=== PATIENT | male | born 1970 | race Caucasian/White ===

== ENCOUNTER 2017-06-17 12:45 | Inpatient (IN) ==
[2017-06-17 13:30] LABS: Basophils # 0.1 K/mcL (0.0-0.2); Basophils % 0.5 %; Eosinophils # 0.2 K/mcL (0.0-0.6); Hematocrit 48.5 % (37.5-50.1); Hemoglobin 16.1 g/dL (12.9-16.9); Immature Granulocytes % 0.6 % (0-4); Lymphocytes % 8.9 %; Mean Corpuscular HGB Conc 33.2 g/dL (31.6-35.5); Mean Corpuscular Hemoglobin 29.3 pg (28.0-33.3); Mean Corpuscular Volume 88.3 fL (83.0-100.0); Mean Platelet Volume 9.1 fL (9.4-12.4); Monocytes # 0.7 K/mcL (0.0-1.3); Monocytes % 6.8 %; Neutrophils # 8.9 K/mcL (1.6-8.9); Platelet Count 280 K/mcL (140-400); Red Blood Count 5.49 M/mcL (4.19-5.50); Red Cell Distribution Width 12.3 % (11.5-14.5); Segmented Neutrophils % 81.2 %
[2017-06-17 13:40] LABS: Alanine Aminotransferase 311 Units/L (0-55); Albumin 3.6 g/dL (3.5-5.0); Alkaline Phosphatase 227 Units/L (38-126); Amylase 29 Units/L (25-125); Aspartate Amino Transferase 199 Units/L (5-34); BUN/Creatinine Ratio 10 (6-26); Bilirubin,Direct 3.4 mg/dL (0.0-0.5); Bilirubin,Indirect 1.9 mg/dL (0.0-1.2); Blood Urea Nitrogen 11 mg/dL (8-26); Calcium 9.6 mg/dL (8.6-10.8); Carbon Dioxide 27 mEq/L (19-29); Chloride 103 mEq/L (98-109); Globulin 3.7 g/dL (2.4-3.5); Glucose 105 mg/dL (70-99); Lipase 11 Units/L (8-78); Osmolality,Calculated 284 (280-300); Sodium 137 mEq/L (136-145); Total Protein 7.3 g/dL (6.0-8.3); eGFR For African Americans > 60 (> 60); eGFR For Non-African Americans > 60 (> 60)
[2017-06-17 13:41] LABS: Bilirubin,Total 5.3 mg/dL (0.2-1.2)
--- NOTE | 2017-06-17 13:55 | Emergency Department Note ---
Disposition Clinical Impression: Choledocholithiasis Disposition: Admitted As Inpatient Condition: Undetermined Referrals: NONE,PCP [Primary Care Provider] - Forms: ED Satisfaction Letter, Work/School Release Time of Disposition: 14:31 Abdominal Pain HPI - General Chief Complaint: ED Abdominal Pain Stated Complaint: gallbladder issues Time Seen by Provider: 06/17/17 13:37 Source: patient, family Mode of arrival: ambulatory Limitations: no limitations Nursing Notes Reviewed: Yes Vital Signs Reviewed: Yes - History of Present Illness HPI Narrative: 46-year-old male with extensive history of biliary disease arrives to [facility] emergency department with multiple complaints of right upper quadrant pain that occurred over the past 2 days. The patient was seen at outside hospital, [facility], where he was worked up receiving a CT scan and lab work. CT scan and labs demonstrated what there was a concern for choledocholithiasis and he attempted to transport the patient to hospital in [place] for possible ERCP. The patient refuses that time he decided to come to [facility]. The patient arrives to the emergency department complaining of right upper quadrant pain. Upon examination the patient has no tenderness at this time but does state he is a little sore prior to palpation. The patient states he is no longer having any pain with the exception of a headache. Patient is resting comfortably sitting on the edge of the bed. The patient denies any other complaints at this time. Pt Subjective Complaint: abdominal pain Onset (ago): hour(s) (12) Consistency: now resolved Location: RUQ Pain Severity: none Pain Scale: 0 Radiation: none Migration to: no migration Improves with: nothing Worsens with: nothing Context: history of similar episodes Associated symptoms: Reports: nausea Treatments prior to arrival: none - Related Data Home Medications Medication Instructions Recorded Confirmed No Known Home Drugs 06/17/17 06/17/17 Allergies Allergy/AdvReac Type Severity Reaction Status Date / Time No Known Allergies Allergy Verified 06/17/17 12:48 All systems ED: reviewed and negative except as stated. Constitutional: Denies: fever, chills, weakness, weight change Cardiovascular: Denies: chest pain, palpitations, dyspnea on exertion, edema, syncope Respiratory: Denies: cough, dyspnea, wheezes, hemoptysis, stridor Gastrointestinal: Reports: abdominal pain (Resolved), nausea. Denies: vomiting , diarrhea, constipation, hematemesis, melena, hematochezia Musculoskeletal: Reports: as per HPI Integumentary: Denies: rash, abrasion, lesions Neurological: Denies: headache, weakness, numbness, paresthesias, confusion, abnormal gait, vertigo Abdominal Pain PMH - Past Medical History Medical history: Reports: no medical history Male Surgical History: Reports: other - Social History Smoking status: Never smoker Alcohol use: Reports: occasionally Drug use: Reports: none Physical Exam - General Limitations: no limitations General appearance: alert, in no apparent distress - Head Head exam: atraumatic, normocephalic, normal inspection - Neck Neck exam: Present: normal inspection, full ROM, trachea midline - Chest Chest inspection: Present: normal inspection, symmetric chest wall rise - Respiratory Respiratory exam: Present: normal lung sounds bilaterally - Cardiovascular Cardiovascular exam: Present: regular rate, normal rhythm, normal heart sounds - Abdominal Exam Abdominal exam: Present: soft, Non-Tender. Absent: tenderness, distention, guarding, rebound, rigidity, pulsatile mass, hernia - Extremities Exam Extremities exam: Present: normal inspection, full ROM. Absent: tenderness, pedal edema - Neurological Exam Neurological exam: Present: alert, oriented X3 - Skin Skin exam: Present: warm, dry, intact, normal color Course Vital Signs Temperature 97.1 F L 06/17/17 12:48 Pulse Rate 81 06/17/17 12:48 Respiratory Rate 16 06/17/17 12:48 Blood Pressure 145/91 06/17/17 12:48 O2 Sat by Pulse Oximetry 96 06/17/17 12:48 Temperature 97.1 F L 06/17/17 12:48 Pulse Rate 81 06/17/17 12:48 Respiratory Rate 16 06/17/17 12:48 Blood Pressure 145/91 06/17/17 12:48 O2 Sat by Pulse Oximetry 96 06/17/17 12:48 Oxygen Delivery Oxygen Delivery Room Air Abdominal Pain - MDM Narrative Medical decision making narrative: Patient is right upper quadrant pain is now resolved this time. The patient had a CT scan and labwork last demonstrated possible choledocholithiasis. The patient labs here demonstrated an elevated total bilirubin. After observing the patient's labs, Dr. Lee in gastroenterology was called and consulted. He recommended the patient receive an ERCP today and that the patient be admitted to the hospitalist service. The patient was made nothing by mouth at that time. The patient will be admitted to the hospitalist service. He should see urine is nitrite positive and positive for bilirubin. No bacteria were seen on urinalysis. This appears to be consistent with findings associated with an elevated bilirubin. We will not treat the patient for a urinary tract infection at this time given he is asymptomatic. Patient made aware and agrees to plan. The patient continues to not want any pain medication for his abdominal pain but is requesting something for his headache. Accepted by Dr. Mari. - Lab Data Lab results reviewed: Yes I reviewed the patient's lab results. Result diagrams: 06/17/17 13:14 06/17/17 13:14 Lab Results 06/17/17 06/17/17 06/17/17 Range/Units 13:14 13:14 13:55 WBC 11.0 (4.3-11.1) K/mcL RBC 5.49 (4.19-5.50) M/mcL Hgb 16.1 (12.9-16.9) g/dL Hct 48.5 (37.5-50.1) % MCV 88.3 (83.0-100.0) fL MCH 29.3 (28.0-33.3) pg MCHC 33.2 (31.6-35.5) g/dL RDW 12.3 (11.5-14.5) % Plt Count 280 (140-400) K/mcL MPV 9.1 L (9.4-12.4) fL Immature Gran % 0.6 (0-4) % Seg Neutrophils % 81.2 % Lymphocytes % 8.9 % Monocytes % 6.8 % Eosinophils % 2.0 % Basophils % 0.5 % Neutrophils # 8.9 (1.6-8.9) K/mcL Lymphocytes # 1.0 (0.6-4.6) K/mcL Monocytes # 0.7 (0.0-1.3) K/mcL Eosinophils # 0.2 (0.0-0.6) K/mcL Basophils # 0.1 (0.0-0.2) K/mcL Sodium 137 (136-145) mEq/L Potassium 4.0 (3.5-4.5) mEq/L Chloride 103 (98-109) mEq/L Carbon Dioxide 27 (19-29) mEq/L BUN 11 (8-26) mg/dL Creatinine 1.05 (0.72-1.25) mg/dL Est GFR ( Amer) > 60 (> 60) Est GFR (Non-Af Amer) > 60 (> 60) BUN/Creatinine Ratio 10 (6-26) Glucose 105 H (70-99) mg/dL Calculated Osmolality 284 (280-300) Calcium 9.6 (8.6-10.8) mg/dL Total Bilirubin 5.3 H (0.2-1.2) mg/dL Direct Bilirubin 3.4 H (0.0-0.5) mg/dL Indirect Bilirubin 1.9 H (0.0-1.2) mg/dL AST 199 H (5-34) Units/L ALT 311 H (0-55) Units/L Alkaline Phosphatase 227 H (38-126) Units/L Serum Total Protein 7.3 (6.0-8.3) g/dL Albumin 3.6 (3.5-5.0) g/dL Globulin 3.7 H (2.4-3.5) g/dL Albumin/Globulin Ratio 1.0 L (1.1-2.2) Amylase 29 (25-125) Units/L Lipase 11 (8-78) Units/L Urine Color [place] A (Yellow) Urine Clarity Clear (Clear) Urine pH 6.0 (5.0-8.0) pH Units Ur Specific [place] 1.030 H (1.010-1.025) Urine Protein 30 H (Neg-Trace) mg/dL Urine Glucose (UA) Normal (Normal) mg/dL Urine Ketones Trace H (Negative) mg/dL Urine Blood Negative (Negative) Urine Nitrite Positive A (Negative) Urine Bilirubin Large H (Negative) Urine Urobilinogen 4.0 H (Normal) mg/dL Ur Leukocyte Esterase Small H (Negative) Urine Microscopic RBC 0-3 (0-3) per hpf Urine Microscopic WBC 0-3 (0-3) per hpf Ur Squamous Epith Cells Moderate H (None-Few) per lpf Urine Bacteria None Seen (None-Few) per hpf Hyaline Casts None Seen (None-Few) per lpf Ur Culture Indicated? YES A (NO) Attestation Statement - Attestation Attestation: I examined this patient and my medical decision-making was reviewed with the Resident Physician. I agree with the documented findings, disposition and treatment plan as described except to the extent set forth below. [id number] time provided Patient seen in conjunction with Dr. Rodriguez. Labs reviewed by me indicating hyperbilirubinemia. Arrangements made for admission for possible ERCP
[2017-06-17] MEDS ORDERED: 0.9 % Sodium Chloride 1,000 ML IVC ONE (14:07)
[2017-06-17] MEDS ORDERED: Metoclopramide 10 MG/2 ML VIAL IVP ONE (14:07)
[2017-06-17 14:08] LABS: Bilirubin,Urine Large (Negative); Blood,Urine Negative (Negative); Clarity,Urine Clear (Clear); Color,Urine Orange (Yellow); Glucose,Urine (UA) Normal (Normal); Ketones,Urine Trace mg/dL (Negative); Leukocyte Esterase,Urine Small (Negative); Nitrite,Urine Positive (Negative); Protein,Urine 30 mg/dL (Neg-Trace)
[2017-06-17 14:10] LABS: Bacteria,Urine None Seen per hpf (None-Few); Hyaline Casts,Urine None Seen per lpf (None-Few); RBC,Urine 0-3 per hpf (0-3); Squamous Epithelial Cell,Urine Moderate per lpf (None-Few); WBC,Urine 0-3 per hpf (0-3)
[2017-06-17] MEDS ORDERED: *HR* Morphine 2 MG/ML SYRINGE IVP PRN (14:53)
[2017-06-17] MEDS ORDERED: Naloxone 0.4 MG/ML INJ IVP PRN (14:53)
[2017-06-17] MEDS ORDERED: Ondansetron 4 MG/2 ML VIAL IVP PRN (14:53)
--- NOTE | 2017-06-17 15:39 | Internal Med History&Physical ---
<Jeff Jauregui - Last Filed: 06/17/17 18:07> Date of Encounter: 06/17/17 Time of Encounter: 15:34 Assessment and Plan (1) Choledocholithiasis Current visit: Yes Status: Acute Patient has evidence of choledocholithiasis on bedside ultrasound with elevated LFTs and bilirubin. Patient is pain-free at this time. She has been consulted and patient will undergo ERCP today. Obtain right upper quadrant ultrasound. Depending on results of ERCP and quadrant ultrasound will likely consult surgery for possible cholecystectomy. Patient states that he would like to have his gallbladder out this admission. Continue IV hydration, as needed pain control. NPO. (2) DVT prophylaxis Current visit: Yes Status: Acute heparin 5000u sq bid Internal Medicine - H&P: HPI Chief complaint: RUQ pain Admitted From: Emergency Dept Plans for Post Hospital Care: Home History of present illness: Mr. Read is a 46 year old male with no significant medical history presents with right upper quadrant pain. Patient states that his symptoms began last June and he had sudden onset severe right upper quadrant pain occasionally associated with food in June 2016, September 2016, twice in January 2017. In February he saw his primary care physician where right upper quadrant ultrasound and labs were obtained which were apparently normal. Patient states that in March 2017 he had another attack of this pain and then Thursday and Thursday of this week he had similar symptoms. He was seen at an outside hospital last night where a CT was performed that showed evidence of gallstones and choledocholithiasis and patient also reports that he had elevated liver enzymes. Attempted to transfer the patient to have care in [place] however he wanted to come duodenal so he left at outside hospital and went home and then presented to the hospital today. At the time of my exam the patient was pain- free. He states that he occasionally has vomiting associated with this pain. He states that the pain often occurs the morning after eating a greasy meal but does not occur in the hours immediately after eating. He denies fever, chills, chest pain, shortness of breath, change in bowel habits, dysuria. In the emergency department labs were obtained that showed elevated liver enzymes and bilirubin. Patient was pain-free at this time and was refusing pain medication. Gastroenterology was consulted and are likely taking the patient for ERCP tonight. Patient will be admitted to the hospital for close monitoring and is at risk for developing complications of choledocholithiasis including acute cholecystitis, ascending cholangitis, and pancreatitis. Past Med Surg Social Fam HX - Past Medical History Medical history: no medical history - Past Surgical History Surgical History: other (urertheral surgery) - Social History Smoking Status: Never smoker Smokeless Tobacco Status: No Alcohol use: occasionally Drug use: none - Family History Mother Hx Family Cancer: Yes (Neck cancer) Sister Hx Family GI Disorders: Yes (Gallbladder disease) Internal Medicine - H&P: Meds No Known Home Drugs 06/17/17 [History] 3 Allergy/AdvReac Type Severity Reaction Status Date / Time No Known Allergies Allergy Verified 06/17/17 12:48 All Systems PM: A 10-system review of systems was performed and is negative for pertinent findings except as documented above in the HPI. - Constitutional Constitutional: no chills, no fever(s) - EENT Eyes: no blurry vision, no change in vision Nose, mouth and throat: no sinus pain, no sinus pressure, no sore throat - Cardiovascular Cardiovascular ROS IM: no chest pain, no irregular heart rhythm, no palpitations - Respiratory Respiratory: no cough, no dyspnea, no dyspnea on exertion - Gastrointestinal Gastrointestinal: abdominal pain, nausea, vomiting, no change in bowel habits, no diarrhea - Genitourinary Genitourinary ROS male: no dysuria - Musculoskeletal Musculoskeletal ROS IM: no arthralgias, no numbness, no tingling - Integumentary Integumentary IM: no pruritus, no rash, no jaundice - Constitutional Vitals: Temp Pulse Resp BP Pulse Ox 97.1 F L 81 16 145/91 96 06/17/17 12:48 06/17/17 12:48 06/17/17 12:48 06/17/17 12:48 06/17/17 12:48 General appearance: Present: A&O X 3, pleasant, no acute distress - Head Head exam: Present: atraumatic, normal inspection, normocephalic - Eye Eye exam: Present: EOMI, PERRL, sclera anicteric - ENT ENT exam: Present: mucous membranes moist, normal oropharynx - Respiratory Respiratory exam: Present: CTAB. Absent: rales, rhonchi, wheezes - Cardiovascular Cardiovascular exam: Present: RRR. Absent: gallop, rubs, systolic murmur - GI/Abdominal GI/Abdominal exam: Present: normal bowel sounds, soft. Absent: distended, tenderness - Extremities Exam Extremities exam: Present: warm. Absent: pedal edema, tenderness - Neurological Exam Neurological exam: Present: alert, CN II-XII intact, oriented X3, no focal deficits - Psychiatric Psychiatric exam: Present: normal affect, normal mood Internal Med - H&P Results - Labs CBC & Chem 7: 06/17/17 13:14 06/17/17 13:14 <Dave Flores P - Last Filed: 06/17/17 18:22> Date of Encounter: 06/17/17 Internal Medicine - H&P: HPI History of present illness: Mr. Read is a 46 year old male All Systems PM: A 10-system review of systems was performed and is negative for pertinent findings except as documented above in the HPI. - Constitutional Vitals: Temp Pulse Resp BP Pulse Ox 97.1 F L 81 18 138/88 96 06/17/17 12:48 06/17/17 12:48 06/17/17 15:33 06/17/17 15:33 06/17/17 12:48 Internal Med - H&P Results - Labs CBC & Chem 7: 06/17/17 13:14 06/17/17 13:14 - Attending Attestation I examined this patient and my medical decision-making was reviewed with the Resident Physician. I agree with the documented findings, disposition and treatment plan as described except to the extent set forth below. GI on board and ERCP today seen patient in Er(room number [id number])
[2017-06-17] MEDS: Ringers Solution, Lactated 1,000 ML IVC SCH ×2 (16:31→22:42)
[2017-06-17] MEDS: *HR* Heparin 5,000 UNIT/ML VIAL SQ SCH (17:45)
--- NOTE | 2017-06-17 19:14 | Anesthesia Evaluation PreOp ---
Date of Encounter: 06/17/17 Time of Encounter: 19:20 - Past History Planned Operation: ERCP Cardiac History: Denies any Significant Hx Pulmonary History: Denies Any Significant HX CIRCUIT TESTER History: Denies Any Significant HX Other Medical History: Other (Obese) Anesthesia History: No Prior Anesthetic Complications Alcohol Use: occasionally Drug use: none Medications and Allergies No Known Home Drugs 06/17/17 [History] 3 Allergy/AdvReac Type Severity Reaction Status Date / Time No Known Allergies Allergy Verified 06/17/17 12:48 - Meds/Allergy Pre-op Review Medications Reviewed: Yes Allergies Reviewed: Yes Beta Blockers on Current Med List: No Anesthesia Results - Labs 06/17/17 13:14 06/17/17 13:14 Anesthesia Exam O2 Sat Height 1.68 m Weight 108.862 kg O2 Sat by Pulse Oximetry 96 Vital Signs Temp Pulse Resp BP Pulse Ox 97.1 F L 81 16 145/91 96 06/17/17 12:48 06/17/17 12:48 06/17/17 12:48 06/17/17 12:48 06/17/17 12:48 Height: 5'6 Weight: 240 lbs NPO (# of Hours): MN Pain Scale: 0 - HEENT Pupil (Motor): Pupils equal, EOMI Mallampati: III Teeth: Normal Oral Opening: Less than or equal to 3 - CIRCUIT TESTER LOC: Oriented CIRCUIT TESTER Motor: Normal RUE, Normal LUE, Normal RLE, Normal LLE, Normal Face CIRCUIT TESTER Sensory: Normal: RUE, LUE, RLE, LLE, Face - Cardiac Rhythm: Regular Murmur: None JVD: No Carotid Bruit: No - Pulmonary Breath Sounds: bilateral Clear Respiratory Effort: Symmetrical Anesthesia Assess/Plan ASA Score: 2 Modified Bellona Scale for Level of Consciousness: Cooperative, oriented, and tranquil Anesthetic Plan: General Monitoring Plan: Standard Monitors Recovery Plan: PACU (Discussed GA, agrees to proceed)
[2017-06-17] MEDS ORDERED: *HR* Succinylcholine 200 MG/10 ML VIAL IVP ONE (19:21)
[2017-06-17] MEDS ORDERED: Lidocaine -MPF 4% 5 ML AMPUL ONE (19:21)
[2017-06-17] MEDS ORDERED: Ondansetron 4 MG/2 ML VIAL ONE (19:21)
[2017-06-17] MEDS ORDERED: Dexamethasone 4 MG/ML VIAL ONE (19:21)
[2017-06-17] MEDS ORDERED: Lidocaine -MPF 2% 2 ML VIAL ONE (19:21)
[2017-06-17] MEDS ORDERED: *HR* Propofol 200 MG/20 ML VIAL IVP ONE (19:21)
[2017-06-17] MEDS ORDERED: *HR* FentaNYL (PF) 100 MCG/2 ML VIAL ONE (19:21)
[2017-06-17] MEDS ORDERED: Indomethacin 50 MG SUPP.RECT RC ONE (20:22)
--- NOTE | 2017-06-17 20:51 | Anesthesia Evaluation Post Op ---
Date of Encounter: 06/17/17 Time of Encounter: 20:50 - Vital Signs Vital Signs: Vital Signs/O2 Sat/Glucose, Most Current Temp Pulse Resp BP Pulse Ox 06/17/17 20:42 85 16 130/89 97 06/17/17 20:32 89 16 121/80 99 06/17/17 20:22 97.4 F L 92 16 126/98 99 06/17/17 19:23 101 18 138/88 99 - Lungs Lungs: Clear Ascult./Percussion - Airway Airway: Non-obstructed - Cardiovascular Regular Rate - Mental Status Mental Status: Alert & Oriented, Answers Appropriately - Pain Pain Scale: 0 - Nausea Vomiting Nausea Vomiting: Not Present - Hydration Hydration: Ice chips - Discharge PostOp Status: Transfer Patient to floor
[2017-06-17] MEDS ORDERED: Acetaminophen 325 MG TABLET PO PRN (22:45)
[2017-06-18 05:27] LABS: Basophils % 0.3 %; Eosinophils % 0.3 %; Hematocrit 45.7 % (37.5-50.1); Hemoglobin 15.1 g/dL (12.9-16.9); Immature Granulocytes % 0.6 % (0-4); Lymphocytes # 0.3 K/mcL (0.6-4.6); Lymphocytes % 4.9 %; Mean Corpuscular Hemoglobin 29.2 pg (28.0-33.3); Mean Corpuscular Volume 88.4 fL (83.0-100.0); Mean Platelet Volume 9.5 fL (9.4-12.4); Monocytes # 0.2 K/mcL (0.0-1.3); Monocytes % 2.5 %; Neutrophils # 5.9 K/mcL (1.6-8.9); Platelet Count 273 K/mcL (140-400); Red Blood Count 5.17 M/mcL (4.19-5.50); Segmented Neutrophils % 91.4 %
[2017-06-18] MEDS: *HR* Heparin 5,000 UNIT/ML VIAL SQ SCH ×2 (05:38→17:16)
[2017-06-18 05:46] LABS: Alanine Aminotransferase 269 Units/L (0-55); Albumin 3.4 g/dL (3.5-5.0); Albumin/Globulin Ratio 0.9 (1.1-2.2); Alkaline Phosphatase 206 Units/L (38-126); Aspartate Amino Transferase 144 Units/L (5-34); BUN/Creatinine Ratio 14 (6-26); Blood Urea Nitrogen 12 mg/dL (8-26); Calcium 9.1 mg/dL (8.6-10.8); Carbon Dioxide 22 mEq/L (19-29); Chloride 106 mEq/L (98-109); Globulin 3.6 g/dL (2.4-3.5); Glucose 144 mg/dL (70-99); Osmolality,Calculated 288 (280-300); Potassium 4.2 mEq/L (3.5-4.5); Sodium 138 mEq/L (136-145); eGFR For African Americans > 60 (> 60); eGFR For Non-African Americans > 60 (> 60)
[2017-06-18 05:48] LABS: Bilirubin,Total 3.1 mg/dL (0.2-1.2)
[2017-06-18 05:49] LABS: Alanine Aminotransferase 270 Units/L (0-55); Albumin 3.4 g/dL (3.5-5.0); Alkaline Phosphatase 206 Units/L (38-126); Aspartate Amino Transferase 144 Units/L (5-34); BUN/Creatinine Ratio 14 (6-26); Bilirubin,Indirect 1.2 mg/dL (0.0-1.2); Blood Urea Nitrogen 12 mg/dL (8-26); Calcium 9.1 mg/dL (8.6-10.8); Carbon Dioxide 21 mEq/L (19-29); Chloride 106 mEq/L (98-109); Globulin 3.5 g/dL (2.4-3.5); Glucose 142 mg/dL (70-99); Magnesium 2.1 mg/dL (1.6-2.6); Osmolality,Calculated 290 (280-300); Potassium 4.3 mEq/L (3.5-4.5); Sodium 139 mEq/L (136-145); Total Protein 6.9 g/dL (6.0-8.3); eGFR For African Americans > 60 (> 60); eGFR For Non-African Americans > 60 (> 60)
[2017-06-18 05:56] LABS: Bilirubin,Direct 1.9 mg/dL (0.0-0.5); Bilirubin,Total 3.1 mg/dL (0.2-1.2)
[2017-06-18] MEDS ORDERED: Pantoprazole 40 MG VIAL IVP SCH (09:00)
[2017-06-18] MEDS: Ringers Solution, Lactated 1,000 ML IVC SCH (11:08)
--- NOTE | 2017-06-18 13:41 | General Surgery Consult Note ---
Date of Encounter: 06/18/17 Time of Encounter: 13:36 Assessment and Plan (1) Right upper quadrant abdominal pain Current Visit: Yes Status: Acute 38M with choledocholithiasis s/p ERCP and CBD stent placment, also with cholelithiasis; no evidence of acute cholecystitis; - NPO - IVF: D5 1/2NS +20K - pre op abx: zosyn - consent for lap poss open mariela (2) Choledocholithiasis Current Visit: Yes Status: Acute - cont CBD stent - trend Tbili post op and in AM - f/u per GI for removal (3) Cholelithiasis Current Visit: Yes Status: Acute - NPO - IVF: D5 1/2NS +20K - pre op abx: zosyn - consent for lap poss open mariela; - no currently obstructed as he was decompressed by GI with ERCP and CBD stent placement Qualifiers: Cholelithiasis location: gallbladder Cholecystitis presence: without cholecystitis Biliary obstruction: without biliary obstruction Qualified Code(s): K80.20 - Calculus of gallbladder without cholecystitis without obstruction (4) Hyperbilirubinemia Current Visit: Yes Status: Acute choledocholithiasis s/p ERCP, CBD stent placement; currently down trending; no evidence clinically of cholangitis - cont to trend T bili History of Present Illness Consult date: 06/18/17 Reason for consult: gallstones (cholelithiasis, choledocholithiasis s/p ERCP) Requesting physician: Tesfaye Mejia History of present illness: This is a 46 year old obese, but otherwise healthy gentleman who was admitted 2/ 2 choledocholithiasis s/p ERCP. The patient reports multiple/recurrent episodes of post prandial abdominal pain with associated nausea over the last 10 months. His worst and most recent abdominal pain was 2 days prior to consultation. The pain was localized to the RUQ, no associated fevers, diarrhea , chest pain or SOB. The patient did report chills. He still has bowel function. He underwent imaging and lab work that were concerning for CDB obstruction. He underwent an ERCP for decompression and stent placement. I was consulted for surgical management of the patient's gallbladder. 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) Current living situation: Home () Activity Level: Independent ambulation - Family History Mother Hx Family Cancer: Yes (esophageal cancer) Sister Hx Family GI Disorders: Yes (Gallbladder disease) Father Hx Family Cancer: Yes (colorectal cancer) Medications and Allergies No Known Home Drugs 06/17/17 [History] 3 Allergy/AdvReac Type Severity Reaction Status Date / Time No Known Allergies Allergy Verified 06/17/17 12:48 Review of Systems All systems PM: reviewed and no additional remarkable complaints except as stated All systems PM: A 10-system review of systems was performed and is negative for pertinent findings except as documented above in the HPI. General Surgery Exam Initial Vital Signs Temp Pulse Resp BP Pulse Ox 97.1 F L 81 16 145/91 96 06/17/17 12:48 06/17/17 12:48 06/17/17 12:48 06/17/17 12:48 06/17/17 12:48 - General physical appearance well developed, well nourished, no distress, no pain, obese - Eyes normal ocular movement, icteric - ENT atraumatic, normocephalic - Respiratory normal expansion, normal respiratory effort, clear to auscultation, other (no audible wheezes) - Cardiovascular Cardiovascular exam: Present: RRR - Abdomen Abdomen general surgery: Present: soft, tender (mildly tender) Abdominal Tenderness: Present: RUQ Hernia: Present: none - Neurologic Present: CN 2-12 grossly intact - Musculoskeletal Present: other (full range of motion appreciated in upper and lower extremities bilaterally) Exam Initial Vital Signs Temp Pulse Resp BP Pulse Ox 97.1 F L 81 16 145/91 96 06/17/17 12:48 06/17/17 12:48 06/17/17 12:48 06/17/17 12:48 06/17/17 12:48 Results - Labs 06/18/17 04:18 06/18/17 04:18 Abnormal lab results Lymphocytes # 0.3 K/mcL (0.6-4.6) L 06/18/17 04:18 Glucose 142 mg/dL (70-99) H 06/18/17 04:18 POC Glucose 118 (58-89) H 06/18/17 12:15 Total Bilirubin 3.1 mg/dL (0.2-1.2) H 06/18/17 04:18 Direct Bilirubin 1.9 mg/dL (0.0-0.5) H D 06/18/17 04:18 AST 144 Units/L (5-34) H 06/18/17 04:18 ALT 270 Units/L (0-55) H 06/18/17 04:18 Alkaline Phosphatase 206 Units/L (38-126) H 06/18/17 04:18 Albumin 3.4 g/dL (3.5-5.0) L 06/18/17 04:18 Albumin/Globulin Ratio 1.0 (1.1-2.2) L 06/18/17 04:18 Urine Color [place] (Yellow) A 06/17/17 13:55 Ur Specific [place] 1.030 (1.010-1.025) H 06/17/17 13:55 Urine Protein 30 mg/dL (Neg-Trace) H 06/17/17 13:55 Urine Ketones Trace mg/dL (Negative) H 06/17/17 13:55 Urine Nitrite Positive (Negative) A 06/17/17 13:55 Urine Bilirubin Large (Negative) H 06/17/17 13:55 Urine Urobilinogen 4.0 mg/dL (Normal) H 06/17/17 13:55 Ur Leukocyte Esterase Small (Negative) H 06/17/17 13:55 Ur Squamous Epith Cells Moderate per lpf (None-Few) H 06/17/17 13:55 Ur Culture Indicated? YES (NO) A 06/17/17 13:55 Diabetes panel 06/18/17 06/18/17 Range/Units 04:18 04:18 Sodium 139 138 (136-145) mEq/L Potassium 4.3 4.2 (3.5-4.5) mEq/L Chloride 106 106 (98-109) mEq/L Carbon Dioxide 21 22 (19-29) mEq/L BUN 12 12 (8-26) mg/dL Creatinine 0.85 0.87 (0.72-1.25) mg/dL Glucose 142 H 144 H (70-99) mg/dL Calcium 9.1 9.1 (8.6-10.8) mg/dL AST 144 H 144 H (5-34) Units/L ALT 270 H 269 H (0-55) Units/L Alkaline Phosphatase 206 H 206 H (38-126) Units/L Albumin 3.4 L 3.4 L (3.5-5.0) g/dL Calcium panel 06/18/17 06/18/17 Range/Units 04:18 04:18 Calcium 9.1 9.1 (8.6-10.8) mg/dL Albumin 3.4 L 3.4 L (3.5-5.0) g/dL Pituitary panel 06/18/17 06/18/17 Range/Units 04:18 04:18 Sodium 139 138 (136-145) mEq/L Potassium 4.3 4.2 (3.5-4.5) mEq/L Chloride 106 106 (98-109) mEq/L Carbon Dioxide 21 22 (19-29) mEq/L BUN 12 12 (8-26) mg/dL Creatinine 0.85 0.87 (0.72-1.25) mg/dL Glucose 142 H 144 H (70-99) mg/dL Calcium 9.1 9.1 (8.6-10.8) mg/dL Adrenal panel 06/18/17 06/18/17 Range/Units 04:18 04:18 Sodium 139 138 (136-145) mEq/L Potassium 4.3 4.2 (3.5-4.5) mEq/L Chloride 106 106 (98-109) mEq/L Carbon Dioxide 21 22 (19-29) mEq/L BUN 12 12 (8-26) mg/dL Creatinine 0.85 0.87 (0.72-1.25) mg/dL Glucose 142 H 144 H (70-99) mg/dL Calcium 9.1 9.1 (8.6-10.8) mg/dL Total Bilirubin 3.1 H 3.1 H (0.2-1.2) mg/dL AST 144 H 144 H (5-34) Units/L ALT 270 H 269 H (0-55) Units/L Alkaline Phosphatase 206 H 206 H (38-126) Units/L Albumin 3.4 L 3.4 L (3.5-5.0) g/dL All other labs normal. - Imaging CT scan - abdomen: report reviewed, image reviewed CT scan - pelvis: report reviewed, image reviewed US - abdomen: report reviewed, image reviewed (cholelithiasis, CBD stent) Consult Discharge Plan - Plan Referrals: NONE,PCP [Primary Care Provider] -
[2017-06-18] MEDS ORDERED: D5% in 0.45% NACL w KCl 20 MEQ/1,000 ML MLS IVC SCH (14:00)
--- NOTE | 2017-06-18 16:45 | Internal Med Progress Note ---
Date of Encounter: 06/18/17 Time of Encounter: 09:10 - Assessment and plan (1) Right upper quadrant abdominal pain Current Visit: Yes Status: Acute Assessment and plan: Due to cholelithiasis and choledocholithiasis. Improving. Consulted surgery for definitive management with laparoscopic cholecystectomy. Moderate risk for complications. (2) Choledocholithiasis Current Visit: Yes Status: Acute Assessment and plan: Status post-ERCP. Patient is clinically getting better. We will continue to monitor liver function tests and bilirubin. (3) DVT prophylaxis Current Visit: Yes Status: Acute (4) Cholelithiasis Current Visit: Yes Status: Acute Qualifiers: Cholelithiasis location: gallbladder Cholecystitis presence: without cholecystitis Biliary obstruction: without biliary obstruction Qualified Code(s): K80.20 - Calculus of gallbladder without cholecystitis without obstruction (5) Hyperbilirubinemia Current Visit: Yes Status: Acute Assessment and plan: Improving. We will continue to trend after surgery. - Subjective Interval history: Patient is doing better today after he underwent ERCP and biliary stent placement. Denies any nausea or vomiting. Abdominal pain has improved. - Constitutional Vitals: Temp Pulse Resp BP Pulse Ox 97.3 F L 91 15 126/77 95 06/18/17 14:57 06/18/17 14:57 06/18/17 14:57 06/18/17 14:57 06/18/17 14:57 General appearance: Present: A&O X 3, pleasant, no acute distress, answers questions appropriately - Neck Neck exam general surgery: Present: supple, trachea midline. Absent: lymphadenopathy - Respiratory Respiratory exam: Present: CTAB. Absent: accessory muscle use, rales, rhonchi, wheezes - Cardiovascular Cardiovascular exam: Present: RRR, +S1, +S2. Absent: diastolic murmur, gallop, rubs, systolic murmur - GI/Abdominal GI/Abdominal exam: Present: normal bowel sounds, soft, no peritoneal signs. Absent: distended, tenderness - Extremities Exam Extremities exam: Present: warm, radial pulses palpable and symmetrical. Absent : calf tenderness, cyanotic, pedal edema Internal Medicine: Result - Labs CBC & Chem 7: 06/18/17 04:18 06/18/17 04:18 Labs: Short CBC 06/18/17 Range/Units 04:18 WBC 6.5 (4.3-11.1) K/mcL Hgb 15.1 (12.9-16.9) g/dL Hct 45.7 (37.5-50.1) % Plt Count 273 (140-400) K/mcL Neutrophils # 5.9 (1.6-8.9) K/mcL BMP 06/18/17 06/18/17 04:18 04:18 Sodium 139 138 Potassium 4.3 4.2 Chloride 106 106 Carbon Dioxide 21 22 BUN 12 12 Creatinine 0.85 0.87 Glucose 142 H 144 H Calcium 9.1 9.1 Liver Function 06/18/17 06/18/17 Range/Units 04:18 04:18 Total Bilirubin 3.1 H 3.1 H (0.2-1.2) mg/dL Direct Bilirubin 1.9 H D (0.0-0.5) mg/dL AST 144 H 144 H (5-34) Units/L ALT 270 H 269 H (0-55) Units/L Alkaline Phosphatase 206 H 206 H (38-126) Units/L Albumin 3.4 L 3.4 L (3.5-5.0) g/dL - Impressions Impressions Gallbladder Ultrasound 06/18/17 08:00 IMPRESSION: Evaluation of the gallbladder is somewhat limited due to stent placement and possible pneumobilia. Stones are noted within the gallbladder. Artifact is noted from stent placement within the common duct. D/ / 06/18/2017 09:40:17 Richard Altamirano MD / nicky Interpreting Provider: Richard Altamirano MD Consult Discharge Plan - Plan Referrals: NONE,PCP [Primary Care Provider] -
--- NOTE | 2017-06-18 19:10 | Gastroenterology Consult Note ---
Date of Encounter: 06/17/17 Time of Encounter: 17:30 - Assessment and plan (1) Hyperbilirubinemia Current Visit: Yes Status: Acute Assessment and plan: Along with elevated LFTs suspicious for CBD obstruction with gallstone. Patient does have symptomatic gallbladder disease. Recommendation ERCP today with biliary ductal decompression and patient will need gallbladder surgery later on. Meanwhile IV fluid nothing by mouth. - Time Spent With Patient Total time spent is greater than 50% in coordination of care (as documented) at patient's floor/unit and/or counseling patient: GI History of Present Illness - Data of Consult Consult date: 06/17/17 Requesting Physician: Tesfaye Mejia MD - Consult Narrative Reason for consult: Jaundice History of present illness: Mr. Read is a 46 year old male who was admitted because of elevated of LFTs. Patient does admit of having symptomatic gallbladder disease for the last nearly a year. Has been to the ER many time including a recent visit to [place] and patient was offered to be transferred to [place] for possible ERCP but he elected to come here. By the time he was admitted here his pain has resolved. Does admit that he had 5-6 episodes of biliary colicky pain in the last 8-10 months. Did vomited some yesterday and also noticed that his eyes were yellow along with dark urine. Past Med Surg Social Fam HX - Past Medical History Medical history: no medical history, other (obesity) Psychiatric history: no psych history - Past Surgical History Surgical History: other (urertheral surgery) - Social History Smoking Status: Never smoker Smokeless Tobacco Status: No Alcohol use: occasionally Drug use: none - Family History Mother Hx Family Cancer: Yes (esophageal cancer) Sister Hx Family GI Disorders: Yes (Gallbladder disease) Father Hx Family Cancer: Yes (colorectal cancer) Review of Systems: GI: as per [facility] GENERAL: denies fever, has some chills EYES: has yellow discoloration ENT: denies pain with swallowing or difficulty swallowing CARDIO: denies chest pain, palpitations RESP: No Shortness of breath with exertion : has change in color of urine NEURO: denies any weakness HEME: Denies any bruising MS: Lately does has some shoulder pain. DERM: denies rash or itching PSYCH: Denies history of anxiety or depression - Constitutional Vitals: Temp Pulse Resp BP Pulse Ox 97.3 F L 91 15 126/77 95 06/18/17 14:57 06/18/17 14:57 06/18/17 14:57 06/18/17 14:57 06/18/17 14:57 CONSTITUTIONAL:~alert, no acute distress.~HEAD:~normocephalic.~EYES:~ jaundice.~ NECK:~no obvious swelling.~HEART:~regular rate and rhythm, no murmurs.~LUNGS:~ bilateral good air entry.~ABDOMEN:~non distended, mild epigastric tander, no masses pulpable, no organomegaly.~RECTAL EXAM:~Deferred.~EXTREMITIES:~no clubbing, cyanosis or edema.~SKIN:~no stigmata of chronic liver disease.~ NEUROLOGIC:~no obvious focal defect.~~~~ General appearance: Present: A&O X 0 Results - Labs CBC & Chem 7: 06/18/17 04:18 06/18/17 04:18 Labs: Last Result Calcium 9.1 mg/dL (8.6-10.8) 06/18/17 04:18 Entire Visit Hgb 15.1 g/dL (12.9-16.9) 06/18/17 04:18 Hct 45.7 % (37.5-50.1) 06/18/17 04:18 Total Bilirubin 3.1 mg/dL (0.2-1.2) H 06/18/17 04:18 AST 144 Units/L (5-34) H 06/18/17 04:18 ALT 270 Units/L (0-55) H 06/18/17 04:18 Amylase 29 Units/L (25-125) 06/17/17 13:14 Lipase 11 Units/L (8-78) 06/17/17 13:14 - Impressions Impressions Gallbladder Ultrasound 06/18/17 08:00 IMPRESSION: Evaluation of the gallbladder is somewhat limited due to stent placement and possible pneumobilia. Stones are noted within the gallbladder. Artifact is noted from stent placement within the common duct. D/ / 06/18/2017 09:40:17 Richard Altamirano MD / nicky Interpreting Provider: Richard Altamirano MD Consult Discharge Plan - Plan Referrals: NONE,PCP [Primary Care Provider] -
[2017-06-18] MEDS ORDERED: ceFAZolin 2,000 MG in D5% in Water 100 ML IVPB ONE ×2 (21:00→23:14)
--- NOTE | 2017-06-18 22:54 | Anesthesia Evaluation PreOp ---
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 Significant HX Other Medical History: Other (Obese) Anesthesia History: No Prior Anesthetic Complications, Past Anesthesia (ERCP) Alcohol Use: occasionally Drug use: none Medications and Allergies No Known Home Drugs 06/17/17 [History] 3 Allergy/AdvReac Type Severity Reaction Status Date / Time No Known Allergies Allergy Verified 06/17/17 12:48 - Meds/Allergy Pre-op Review Medications Reviewed: Yes Allergies Reviewed: Yes Beta Blockers on Current Med List: No Anesthesia Results - Labs 06/18/17 04:18 06/18/17 04:18 Laboratory Tests 06/18/17 06/18/17 04:18 04:18 Hgb 15.1 Hct 45.7 Plt Count 273 Sodium 139 Potassium 4.3 BUN 12 Creatinine 0.85 Anesthesia Exam O2 Sat O2 Sat by Pulse Oximetry 94 O2 Sat by Pulse Oximetry 95 O2 Sat by Pulse Oximetry 94 O2 Sat by Pulse Oximetry 93 Vital Signs Temp Pulse Resp BP Pulse Ox 97.1 F L 81 16 145/91 96 06/17/17 12:48 06/17/17 12:48 06/17/17 12:48 06/17/17 12:48 06/17/17 12:48 Height: 5'6 Weight: 240 lbs NPO (# of Hours): MN Pain Scale: 0 - HEENT Pupil (Motor): Pupils equal, EOMI Mallampati: II Teeth: Normal Oral Opening: Greater than 3 - CRUSHER LOADER EQUIPMENT OPERATOR LOC: Oriented CRUSHER LOADER EQUIPMENT OPERATOR Motor: Normal RUE, Normal LUE, Normal RLE, Normal LLE, Normal Face CRUSHER LOADER EQUIPMENT OPERATOR Sensory: Normal: RUE, LUE, RLE, LLE, Face - Cardiac Rhythm: Regular Murmur: None JVD: No Carotid Bruit: No - Pulmonary Breath Sounds: bilateral Clear Respiratory Effort: Symmetrical Anesthesia Assess/Plan ASA Score: 2 Modified [facility] Scale for Level of Consciousness: Cooperative, oriented, and tranquil Anesthetic Plan: General Monitoring Plan: Standard Monitors Recovery Plan: PACU (Discussed GA, agrees to proceed)
[2017-06-18] MEDS ORDERED: Dexamethasone 4 MG/ML VIAL ONE (23:03)
[2017-06-18] MEDS ORDERED: *HR* Propofol 200 MG/20 ML VIAL IVP ONE (23:03)
[2017-06-18] MEDS ORDERED: Lidocaine -MPF 2% 2 ML VIAL ONE (23:03)
[2017-06-18] MEDS ORDERED: *HR* FentaNYL (PF) 100 MCG/2 ML VIAL ONE (23:03)
[2017-06-18] MEDS ORDERED: *HR* Rocuronium Bromide 50 MG/5 ML VIAL ONE (23:03)
[2017-06-18] MEDS ORDERED: *HR* Succinylcholine 200 MG/10 ML VIAL IVP ONE (23:03)
[2017-06-18] MEDS ORDERED: Ondansetron 4 MG/2 ML VIAL ONE (23:03)
[2017-06-18] MEDS ORDERED: *HR* HYDROmorphone 2 MG/ML SYRINGE ONE (23:29)
[2017-06-19] MEDS ORDERED: 0.9 % Sodium Chloride 1,000 ML IVC SCH
[2017-06-19] MEDS ORDERED: Neostigmine Methylsulfate 3 MG/3 ML SYRINGE ONE (00:01)
--- NOTE | 2017-06-19 00:41 | Anesthesia Evaluation Post Op ---
Date of Encounter: 06/19/17 Time of Encounter: 00:50 - Vital Signs Vital Signs: Vital Signs/O2 Sat/Glucose, Most Current Temp Pulse Resp BP Pulse Ox 06/19/17 00:36 92 14 153/95 94 06/19/17 00:26 97.5 F L 98 16 159/99 93 - Lungs Lungs: Clear Ascult./Percussion - Airway Airway: Non-obstructed - Cardiovascular Regular Rate - Mental Status Mental Status: Alert & Oriented, Answers Appropriately - Pain Pain Scale: 0 - Nausea Vomiting Nausea Vomiting: Not Present - Hydration Hydration: Ice chips - Discharge PostOp Status: Transfer Patient to floor
--- NOTE | 2017-06-19 01:00 | Operative Note ---
Date of procedure: 06/19/17 Pre-op diagnosis: choledocholithiasis, cholelithiasis Post-op diagnosis: same Procedure: laparoscopic cholecystectomy Implants: none Complications: none Anesthesia: GETA Local Anesthetics: 0.5% Sensorcaine HCL SubQ (cc) (30 cc) Surgeon: Garrett Byrd Employee Services Manager: Merry Freedman Estimated blood loss (cc): 10 Specimen: gallbladder and contents Condition: stable Disposition: PACU Procedure in Detail: Indications: 46yom with recurrent episodes of biliary colic, admitted with choledocholithiasis s/p ERCP, CBD stent placement. Discussed with the patient need for cholecystectomy to prevent further complications. Discussed risk and benefits and alternatives. The patient elected for surgical management. Procedure: The patient was brought into the operating room suite. Mechanical DVT prophylaxis was applied. The patient was placed in the supine position. Underwent smooth induction of anesthesia. The patient was prepped and draped in the usual fashion. Preoperative antibiotics were administered. A timeout was held identifying correct patient, pathology, and procedure. Everyone was in agreement and I began the procedure. I began by creating a 10mm supraumbilical incision and via open Janae technique entered into the abdomen. Using a vicryl suture in a figure of 87 fashion reapproximated the fascia without closing the fascia. I inserted the camera and inspected the abdomen. There were no other abnormalities appreciated. Three 5 mm trocars were inserted via 5 mm incisions at the epigastrium, R midclavicular line, one hand breadth from the epigastrium, and a last one handbreath lateral approximately at the anterior axillary line. Instruments were inserted and the gallbladder was retracted posteriorly. Using blunt dissection and electrocautery I was dissected the peritoneum off of the gallbladder and quickly identified the insertion point of cystic duct with the gallbladder. I continued to dissect inferiorly until I had adequate length. I then Identified Calot's Node and identified the cystic duct. Dissecting through the tissue between them, I was able to visualize the liver posteriorly. Using metal clips (5mm clips), I clipped both the structures with two on the stay side, one on the specimen side. using scissors, I transected through both structures. Then using traction and countertraction I used electrocautery to dissect the gallbladder off of the liver bed. I extracted the specimen in the endocatch bag after changing to a 30 degree 5mm scope. The gallbladder was extracted intact. The liver bed was inspected, all clips were in place, no bleeding or leakage of bile was appreciated; I irrigated the surgical site before concluding the procedure. I closed the fascia using the vicryl suture applied in the beginning. All incisions were closed with monocryl suture and sealed with dermabond. Local anesthetic was applied to all incisions. The patient tolerated the procedure and was transported to PACU in stable condition.
[2017-06-19] MEDS ORDERED: *HR* Morphine 2 MG/ML SYRINGE IVP PRN (01:13)
[2017-06-19] MEDS ORDERED: Ondansetron 4 MG/2 ML VIAL IVP PRN (01:13)
[2017-06-19] MEDS ORDERED: Naloxone 0.4 MG/ML INJ IVP PRN (01:13)
[2017-06-19] MEDS ORDERED: Acetaminophen 325 MG TABLET PO PRN (01:13)
[2017-06-19] MEDS: D5% in 0.45% NACL w KCl 20 MEQ/1,000 ML MLS IVC SCH ×2 (01:40→05:33)
[2017-06-19 02:17] LABS: Alanine Aminotransferase 223 Units/L (0-55); Albumin 3.3 g/dL (3.5-5.0); Alkaline Phosphatase 182 Units/L (38-126); Aspartate Amino Transferase 102 Units/L (5-34); BUN/Creatinine Ratio 13 (6-26); Blood Urea Nitrogen 12 mg/dL (8-26); Calcium 8.8 mg/dL (8.6-10.8); Carbon Dioxide 23 mEq/L (19-29); Chloride 108 mEq/L (98-109); Globulin 3.2 g/dL (2.4-3.5); Glucose 143 mg/dL (70-99); Osmolality,Calculated 294 (280-300); Potassium 3.9 mEq/L (3.5-4.5); Sodium 141 mEq/L (136-145); Total Protein 6.5 g/dL (6.0-8.3); eGFR For African Americans > 60 (> 60); eGFR For Non-African Americans > 60 (> 60)
[2017-06-19 02:18] LABS: Bilirubin,Total 1.1 mg/dL (0.2-1.2)
[2017-06-19] MEDS ORDERED: *HR* HYDROcodone/Acet 10/325 mg TABLET PO PRN (04:31)
[2017-06-19] MEDS ORDERED: *HR* Morphine 2 MG/ML SYRINGE IVP ONE (04:32)
[2017-06-19] MEDS ORDERED: *HR* HYDROcodone/Acet 5/325 mg TABLET PO PRN (04:35)
[2017-06-19] MEDS ORDERED: *HR* Heparin 5,000 UNIT/ML VIAL SQ SCH (06:00)
[2017-06-19 07:14] VITALS: BP 139/78
[2017-06-19 08:59] LABS: Alanine Aminotransferase 206 Units/L (0-55); Albumin 3.3 g/dL (3.5-5.0); Alkaline Phosphatase 181 Units/L (38-126); Aspartate Amino Transferase 90 Units/L (5-34); BUN/Creatinine Ratio 13 (6-26); Bilirubin,Total 1.2 mg/dL (0.2-1.2); Blood Urea Nitrogen 11 mg/dL (8-26); Calcium 8.8 mg/dL (8.6-10.8); Carbon Dioxide 23 mEq/L (19-29); Chloride 105 mEq/L (98-109); Globulin 3.4 g/dL (2.4-3.5); Glucose 156 mg/dL (70-99); Osmolality,Calculated 289 (280-300); Sodium 138 mEq/L (136-145); Total Protein 6.7 g/dL (6.0-8.3); eGFR For African Americans > 60 (> 60); eGFR For Non-African Americans > 60 (> 60)
--- NOTE | 2017-06-19 09:59 | Discharge Summary ---
Date of Encounter: 06/19/17 Time of Encounter: 09:57 - Discharge Diagnosis (1) Cholelithiasis Priority: Primary Status: Resolved Qualifiers: Cholelithiasis location: gallbladder Cholecystitis presence: with cholecystitis Cholecystitis acuity: unspecified acuity Biliary obstruction: without biliary obstruction Qualified Code(s): K80.00 - Calculus of gallbladder with acute cholecystitis without obstruction (2) Choledocholithiasis Priority: Secondary Status: Resolved (3) Right upper quadrant abdominal pain Priority: Secondary Status: Resolved - Discharge Medications Prescriptions: Ondansetron ODT [Zofran ODT] 4 mg SL Q4HR #30 tab.rapdis OxyCODONE/APAP 10/325 [Percocet 10/325 MG] 1 each PO Q4HR PRN #42 tablet PRN Reason: Pain Docusate [Colace] 100 mg PO BID #60 capsule Ibuprofen 800 mg PO Q8H #60 tablet Home Medications: Docusate [Colace] 100 mg PO BID #60 capsule 06/19/17 [Rx] Ibuprofen 800 mg PO Q8H #60 tablet 06/19/17 [Rx] Ondansetron ODT [Zofran ODT] 4 mg SL Q4HR #30 tab.rapdis 06/19/17 [Rx] OxyCODONE/APAP 10/325 [Percocet 10/325 MG] 1 each PO Q4HR PRN #42 tablet [Rx] Allergies/Adverse Reactions: 3 Allergy/AdvReac Type Severity Reaction Status Date / Time No Known Allergies Allergy Verified 06/17/17 12:48 General Surgery Exam Initial Vital Signs Temp Pulse Resp BP Pulse Ox 97.1 F L 81 16 145/91 96 06/17/17 12:48 06/17/17 12:48 06/17/17 12:48 06/17/17 12:48 06/17/17 12:48 - General physical appearance well developed, well nourished, no distress, other (No jaundice noted) - Neck no masses, no bruits, trachea midline, no lymphadectomy, no venous distension - Respiratory normal expansion, normal respiratory effort, clear to percussion, clear to auscultation - Cardiovascular Cardiovascular exam: Present: RRR, 15, 16 - Abdomen Abdomen general surgery: Present: bowel sounds present, soft, tender (Expected postoperative) - Incision Incision: Present: clean and dry, intact - Integumentary Integumentary general surgery: Present: warm and dry, no abnormal pigmentation - Neurologic Present: CN 2-12 grossly intact, normal coordination, normal sensation - Musculoskeletal Present: normal gait, normal posture - Psychiatric Psychiatric general surgery: Present: A&Ox3, appropriate, oriented to person, oriented to place, oriented to time, speech is normal, memory intact Date of admission: 06/17/17 18:20 Primary care physician: PCP NONE Consults: DR. Lee Discharging clinician: Garrett Byrd Anticipated date of discharge: 06/19/17 - Patient Status Disposition: Home, Self-Care Condition: Good Functional capacity at discharge: independent ambulation Overall status at discharge: patient is progressing back to baseline - Discharge Instructions Instructions: Laparoscopic Cholecystectomy (DC), Endoscopic Retrograde Cholangiopancreatography (DC) Follow Up With: NONE,PCP [Primary Care Provider] - Antwan Lee MD [Partnered Physician] - (To discuss Stent management and removal 3-4 weeks) Forms: Inpatient Work/School Release Additional Instructions: -No lifting, pulling, pushing, greater than 15 pounds for 2 weeks. -Okay to climb stairs. -May resume driving when you have been off narcotics for 24 hours and you are safe to react in the car. -You may shower beginning today. Wash the incisions daily with soap and water and pat dry. -No swimming, tub bath, or soaking for 2 weeks. -Return to the office for follow-up as directed. -Report any increase in discomfort or any new fevers greater than 101.5 degrees and signs of infection such as redness, swelling, or drainage from the incisions. -Take ibuprofen every 8 hours for the 1st 24 to 48 hours. You may take narcotics if your pain is not relieved by the ibuprofen. Break the oxycodone in half if it is too strong. -Do not take extra Tylenol if you use narcotics. -Take stool softener while on narcotics. -You may hold Colace for loose stool. - Diet and Activity Activity: increase activity as tolerated Diet: advance to your usual diet - Hospital Course Hospital course: Mr. Read is a 46 year old male who presented on 06/17/2017 for RUQ pain and was noted to have choledocholithiasis s/p ERCP and CBD stent placment, also with cholelithiasis; no evidence of acute cholecystitis. He opted for surgical management and was taken to the operating room where he underwent a laparoscopic cholecystectomy with Dr. Byrd. His total bilirubin has normalized. His liver functions remain elevated butter down trending. He is afebrile and his vital signs are stable. He denies nausea or vomiting and is tolerating a diet. He is ambulating voiding without difficulty. He states his discomfort is controlled at the current regimen. We will begin discharge planning in the next 24 to 48 hours pending clinical course with a follow-up in the office in 2 weeks and follow-up with Dr. Lee in 3 to 4 weeks for common bile duct stent management. 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 Patient notified that this is reasonable and if he feels improvement, he will call the office and we can issue a work-release prior to July 03 with lift restrictions to remain in place. - Time Spent with Patient Total time spent providing and/or coordinating discharge services: Less than 30 minutes Labs on day of discharge: Labs from last 24 hours 06/19/17 06/19/17 06/18/17 07:49 01:41 17:22 Sodium 138 141 Potassium 4.0 3.9 Chloride 105 108 Carbon Dioxide 23 23 BUN 11 12 Creatinine 0.86 0.95 Est GFR ( Amer) > 60 > 60 Est GFR (Non-Af Amer) > 60 > 60 BUN/Creatinine Ratio 13 13 Glucose 156 H 143 H POC Glucose 112 H Calculated Osmolality 289 294 Calcium 8.8 8.8 Total Bilirubin 1.2 1.1 D AST 90 H 102 H ALT 206 H 223 H Alkaline Phosphatase 181 H 182 H Serum Total Protein 6.7 6.5 Albumin 3.3 L 3.3 L Globulin 3.4 3.2 Albumin/Globulin Ratio 1.0 L 1.0 L 06/18/17 12:15 Sodium Potassium Chloride Carbon Dioxide BUN Creatinine Est GFR ( Amer) Est GFR (Non-Af Amer) BUN/Creatinine Ratio Glucose POC Glucose 118 H Calculated Osmolality Calcium Total Bilirubin AST ALT Alkaline Phosphatase Serum Total Protein Albumin Globulin Albumin/Globulin Ratio - Impressions ITS Impressions Gallbladder Ultrasound 06/18/17 08:00 IMPRESSION: Evaluation of the gallbladder is somewhat limited due to stent placement and possible pneumobilia. Stones are noted within the gallbladder. Artifact is noted from stent placement within the common duct. D/ / 06/18/2017 09:40:17 Richard Altamirano MD / nicky Interpreting Provider: Richard Altamirano MD
== END 2017-06-19 13:07 | disposition home or self-care (01) | DRG 419 ==
LOC: EMEROO 12:45 → 3ANU 12:45 → SUATTDRO 18:20
PROVIDERS: ADMIT Family Medicine; ATTEND Surgery